=== PATIENT | male | born 1955 | race Caucasian/White ===

== ENCOUNTER 2024-04-01 14:02 | Emergency (ER) | payer MEDICARE, OTHER, SELFPAY ==
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
[2024-04-01 14:05] VITALS: BP 149/79; PULSE 84; RESP 17; TEMP 36.4; O2SAT 96
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
[2024-04-01 15:48] VITALS: BP 138/86; PULSE 89; RESP 18; O2SAT 97
[2024-04-01 16:59] VITALS: BP 130/72; PULSE 69; RESP 17; O2SAT 97
== END 2024-04-01 17:30 | disposition home or self-care (01) ==
PROVIDERS: Emergency Provider Physician Assistant
DX: S29.012A Strain of muscle and tendon of back wall of thorax, initial encounter (principal); V89.2XXA Person injured in unspecified motor-vehicle accident, traffic, initial encounter
CPT/HCPCS: 70450; 72125; 72128; 99284

== ENCOUNTER 2024-05-08 12:29 | Outpatient (CLI) | payer MEDICARE, SELFPAY ==
--- NOTE | ~2024-05-08 | XR_ITS ---
Lumbosacral Spine: AP and lateral views Clinical History: Pain Findings: The normal lordotic curve is maintained. The vertebral bodies and posterior elements are i ntact. There is advanced degenerative disc narrowing at L4-L5 and L5-S1. There is moderate to advance d facet arthropathy throughout the lumbar spine. The sacroiliac joints are normally outlined. Impression: Advanced degenerative spondylitic change, especially the lower lumbar spine, as above. Reviewed, dictated and finalized at [facility]. PLANNER Impression: Advanced degenerative spondylitic change, especially the lower lumbar spine, as above.
== END 2024-05-08 12:30 | disposition home or self-care (01) ==
DX: M47.816 Spondylosis without myelopathy or radiculopathy, lumbar region (principal)
CPT/HCPCS: 72100